=== PATIENT | female | born 1990 | race Caucasian/White ===

== ENCOUNTER 2020-10-12 18:43 | Emergency (ER) | payer OTHER ==
[~2020-10-12] VITALS: Ht 165.1 cm; Wt 59.0 kg
[2020-10-12] MEDS ORDERED: Motrin,Rufen800 MG PO (22:02)
[2020-10-12] MEDS ORDERED: CYCLOBENZAPRINE5 M3 PO (22:02)
== END 2020-10-12 22:15 | disposition home or self-care (01) ==
LOC: ED 18:43
DX: S16.1XXA Strain of muscle, fascia and tendon at neck level, initial encounter (principal); S29.012A Strain of muscle and tendon of back wall of thorax, initial encounter; S60.212A Contusion of left wrist, initial encounter; M25.521 Pain in right elbow; M25.522 Pain in left elbow; R51.9 Headache, unspecified; Z88.0 Allergy status to penicillin; Z88.2 Allergy status to sulfonamides; Z91.040 Latex allergy status; Z88.1 Allergy status to other antibiotic agents; V47.6XXA Car passenger injured in collision with fixed or stationary object in traffic accident, initial encounter; Y93.89 Activity, other specified; Y92.488 Other paved roadways as the place of occurrence of the external cause; Y99.8 Other external cause status